=== PATIENT | female | born 1970 | race American Indian/Alaskan Native ===

== ENCOUNTER 2019-10-16 01:02 | Emergency (ER) | payer OTHER ==
[~2019-10-16] VITALS: Ht 170.2 cm; Wt 115.2 kg
[~2019-10-16 01:02] MED LIST: BACTRIM DS TAB1 EACH PO; BENADRYL ALLERG25 MG PO; LEVO-T175 MCG PO; LEVOTHYROXINE200 MCG PO; METFORMIN HCL500 MG PO; NAPROXEN500 MG PO; NEURONTIN100 MG PO; PREDNISONE20 MG PO; SIMVASTATIN20 MG PO; SYNTHROID125 MCG PO; VALTREX1000 MG PO
[2019-10-16] MEDS ORDERED: ULTRAM50 MG PO (02:42)
== END 2019-10-16 02:52 | disposition home or self-care (01) ==
LOC: ED 01:02
DX: S70.02XA Contusion of left hip, initial encounter (principal); S20.211A Contusion of right front wall of thorax, initial encounter; E78.5 Hyperlipidemia, unspecified; F17.200 Nicotine dependence, unspecified, uncomplicated; W19.XXXA Unspecified fall, initial encounter
CPT/HCPCS: 71101; 73502; 99283-25

== ENCOUNTER 2019-11-30 14:22 | Emergency (ER) | payer OTHER ==
[~2019-11-30] VITALS: Ht 170.2 cm; Wt 111.1 kg
--- OUTSIDE RECORDS SUMMARY | ~2019-11-30 | XMS | Encounter Summary ---
Demographics + + + | Address | [address] | | | [place] [address] | + + + | Home Phone | | + + + | Preferred Language | Unknown | + + + | Marital Status | Single | + + + | Sikh Affiliation | 1041 | + + + | Race | or | + + + | Ethnic Group | Not or | + + + Author + + + | Author | [facility] | | | and [place] | + + + | Organization | [facility] | | | and [place] | + + + | Address | Unknown | + + + | Phone | Unavailable | + + + Support + + +---------+ + | Name | Relationship | Address | Phone | + + +---------+ + | Priti Hussein | ECON | Unknown | | + + +---------+ + Care Team Providers + +------+ + | Care Loom Changer Name | Role | Phone | + +------+ + | Quita Hallman | PCP | | + +------+ + Reason for Visit +--------+--------+ + | Reason | Onset | Comments | | | Date | | +--------+--------+ + | Other | 11/20/ | proactive screening | | | 2020 | | +--------+--------+ + Encounter Details +--------+ + + + + | Date | Type | Department | Care Team | Description | +--------+ + + + + | 11/20/ | Telephone | [facility] | Ginny Boland, | Other (proactive | | 2020 | | GASTROENTEROLOGY | [address] | screening) | | | | [address] | [place] [address] | | | | | [place], [place] | [phone] | | | | | [address] | | | | | | [phone] | | | +--------+ + + + + Social History + +-------+ +--------+------+ | Tobacco Use | Types | Packs/Day | Years | Date | | | | | Used | | + +-------+ +--------+------+ | Never Smoker | | | | | + +-------+ +--------+------+ + +---+---+---+ | Smokeless Tobacco: | | | | | Never Used | | | | + +---+---+---+ + + + | Sex Assigned at | Date Recorded | | | | + + + | Not on file | | + + + documented as of this encounter Miscellaneous Notes Telephone Encounter - Andrey Cagle CNA - 11/21/2019 11:56 AM PDTProactive screenin tra for upcoming office visit to help ensure the clinic environment remains a safe place to re ceive care. 1. Patient (or visitor as allowed per policy) reports the following symptoms and/or exposur e on the epidemic risk screen: ? Fever greater than 100 F in the last 24 hours?: no ? New onset (within the last 10 days) cough?: no ? New onset (within the last 10 days) shortness of breath?: no ? New onset (within the last 10 days) loss of taste or smell?: no ? New onset (within the last 10 days) sore throat?: no ? New onset (within the last 10 days) chills?: no ? New onset (within the last 10 days) muscle aches or general malaise?: no ? New onset (within the last 10 days) nausea, vomiting, or diarrhea?: no ? New onset (within the last 10 days) congestion or runny nose?: no ? Close contact with someone who has been diagnosed with COVID-19 in the last 14 days?: no The patient reported no symptoms or exposure and proceeded with proactive screening process . 2. Have you tested positive for COVID-19 in the last 10 days without ever having symptoms ?: No. Okay to see patient in clinic per scheduling guidelines, proceeded to question #3 3. Does the patient have MyChart Access?: No. Patient refused. Please be aware that you will be asked these same questions when you arrive at the clinic. If you have any changes in your symptoms between now and your visit, please call us so we c an get you scheduled for an alternative visit before you arrive at the clinic. Following [facility] guidelines, masking is required when you receive care at a [facility] site. If you are unable to wear a mask for medical reasons, alternative visit opti ons are available. Hand washing is sorto to keeping our clinic a safe place to receive care. While you are in r clinics you will be asked to perform hand washing at different intervals throughout your v isit. While you are in the clinic 6ft distancing is required, please ensure you look for the 6ft floor markers and adhere to distancing. Visitor restrictions remain in place following CDC guidance. Only minimal exceptions will be allowed. If you arrive with a visitor they may be asked to wait in the car during your v isit. We reserve the right to deny entrance to patients or visitors who refuse to comply with the above safety precautions. documented in t his encounter Plan of Treatment Not on filedocumented as of this encounter Visit Diagnoses Not on filedocumented in this encounter"
--- OUTSIDE RECORDS SUMMARY | ~2019-11-30 | XMS | Encounter Summary ---
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 are in the | | | | PDT | | results section. | + +--------+ + + + | CT ABDOMEN PELVIS WO | Routin | 07/23/2012 | | Results for this | | CONTRAST | e | 7:13 AM | | procedure are in the | | | | PDT | | results section. | + +--------+ + + + | XR CHEST 1 VIEW | Routin | 07/23/2012 | | Results for this | | | e | 6:39 AM | | procedure are in the | | | | PDT | | results section. | + +--------+ + + + | XR TIBIA FIBULA | Routin | 07/23/2012 | | Results for this | | RIGHT 2 VW | e | 3:34 AM | | procedure are in the | | | | PDT | | results section. | + +--------+ + + + | XR FOREARM RIGHT 2 | Routin | 07/23/2012 | | Results for this | | VW | e | 3:34 AM | | procedure are in the | | | | PDT | | results section. | + +--------+ + + + | XR PELVIS 1 OR 2 VW | Routin | 07/23/2012 | | Results for this | | | e | 3:34 AM | | procedure are in the | | | | PDT | | results section. | + +--------+ + + + | CT HEAD CERVICAL | Routin | 07/23/2012 | | Results for this | | SPINE WO CONTRAST | e | 3:21 AM | | procedure are in the | | CHEST ABDOMEN PELVIS | | PDT | | results section. | | W CONTRAST | | | | | + +--------+ + + + | XR CHEST 1 VIEW | Routin | 07/23/2012 | | Results for this | | | e | 2:05 AM | | procedure are in the | | | | PDT | | results section. | + +--------+ + + + documented in this encounter Results XR Chest 1 Vw (07/23/2012 8:31 AM PDT) + + | Specimen | + + | | + + + + + | Narrative | Performed At | + + + | HISTORY: Daily assessment for life support lines and tubes. | | | TECHNIQUE: AP chest film 0820 hrs. COMPARISON: AP chest film | | | July 23, 2012 at 0634 hrs. FINDINGS: The well positioned | | | endotracheal tube is unchanged. The enteric tube tip has been slightly | | | advanced, currently margin of the gastric body. A new left basilar | | | chest tube is found, without significant left pneumothorax is seen. | | | Patchy bilateral airspace opacities are again noted, left greater | | | than right suggesting lung contusions. Unchanged left-sided rib | | | fractures are again seen. The cardiac silhouette size is likely stably | | | and mildly enlarged. IMPRESSION: 1. Interval placement of a | | | left-sided chest tube without significant left pneumothorax currently | | | found. 2. Endotracheal tube and nasogastric tube, as above. | | | 3. Unchanged bilateral lung contusions with left-sided rib fractures | | | again seen. Electronically signed by Lv Choudhury MD on | | | 07/23/2012 3:25 PM | | + + + + + | Procedure Note | + + | Farhan, Rad Conversion - 11/25/2018 6:03 PM PDT HISTORY:Daily assessment for life | | support lines and tubes. TECHNIQUE:AP chest film 0820 hrs. COMPARISON:AP chest film | | July 23, 2012 at 0634 hrs. FINDINGS:The well positioned endotracheal tube is unchanged. | | The enteric tube tip has been slightly advanced, currently margin of the gastric body. | | A new left basilar chest tube is found, without significant left pneumothorax is seen. | | Patchy bilateral airspace opacities are again noted, left greater than right suggesting | | lung contusions. Unchanged left-sided rib fractures are again seen. The cardiac | | silhouette size is likely stably and mildly enlarged. IMPRESSION:1. Interval placement | | of a left-sided chest tube without significant left pneumothorax currently found. 2. | | Endotracheal tube and nasogastric tube, as above. 3. Unchanged bilateral lung | | contusions with left-sided rib fractures again seen. | | | |IMPRESSION: | |1. Interval placement of a left-sided chest tube without significant left pneumothorax cur rently found. | | | |2. Endotracheal tube and nasogastric tube, as above. | | | |3. Unchanged bilateral lung contusions with left-sided rib fractures again seen. | | | | | + + XR Chest 1 Vw (07/23/2012 8:24 AM PDT) + + | Specimen | + + | | + + + + + | Narrative | Performed At | + + + | UNIFORM 23 TRAUMA XR CHEST 1 VIEW 07/23/2012 7:55 AM HISTORY: | | | Trauma. Tube placement. TECHNIQUE: One view chest. | | | FINDINGS: Compared with July 23, 2012 0634 hrs. The endotracheal | | | tube tip is 3 cm above the ruba. A left pleural drain has been | | | placed. The nasogastric tube appears to pull back and is now in the | | | lower esophagus. There are persistent contusions throughout the | | | left lung with little significant change. Left clavicle and rib | | | fractures are again noted. The right lung is relatively clear. No | | | definite pneumothorax is seen. IMPRESSION: 1. Placement of a | | | left pleural drain. No other significant change. Electronically | | | signed by Dayne Calixto MD on 07/23/2012 8:12 PM | | + + + + + | Procedure Note | + + | Farhan, Rad Conversion - 11/25/2018 6:03 PM [facility] 23 TRAUMAXR CHEST 1 | | VIEW07/23/2012 7:55 AM HISTORY:Trauma. Tube placement. TECHNIQUE:One view chest. | | FINDINGS:Compared with July 23, 2012 0634 hrs. The endotracheal tube tip is 3 cm above | | the ruba. A left pleural drain has been placed. The nasogastric tube appears to | | pull back and is now in the lower esophagus. There are persistent contusions throughout | | the left lung with little significant change. Left clavicle and rib fractures are | | again noted. The right lung is relatively clear. No definite pneumothorax is seen. | | IMPRESSION:1. Placement of a left pleural drain. No other significant change. | | | | | |FINDINGS: | |Compared with July 23, 2012 0634 hrs. The endotracheal tube tip is 3 cm above the ruba. A left pleural drain has been placed. The nasogastric tube appears to pull back and is no w in the lower esophagus. There are | |persistent contusions throughout | |the left lung with little significant change. Left clavicle and rib fractures are again no rupinder. The right lung is relatively clear. No definite pneumothorax is seen. | | | |IMPRESSION: | |1. Placement of a left pleural drain. No other significant change. | | | | | + + CT Abdomen Pelvis wo Contrast (07/23/2012 7:13 AM PDT) + + | Specimen | + + | | + + + + + | Narrative | Performed At | + + + | EXAM: ABDOMEN AND PELVIS CT EXAM DATE: 07/23/2012 07:14 AM. | | | CLINICAL HISTORY: Trauma, follow up CT from 07/23/2012 at 0238 | | | COMPARISONS: 07/23/2012 at 0238 TECHNIQUE: Routine helical CT | | | imaging was performed through the abdomen and pelvis. IV contrast: | | | None. Enteric contrast: None. Reconstructions: Coronal and sagittal. | | | FINDINGS: Lung Bases: Dense dependent airspace disease both lower | | | lobes, no significant [id number] Left-sided pneumothorax Liver: | | | Diffuse fatty infiltration, no focal mass Gallbladder/Bile Ducts: | | | Prior cholecystectomy, biliary tree otherwise unremarkable Spleen: | | | Normal size. No masses. Pancreas: Normal. No masses or ductal | | | obstruction. Adrenal Glands: Normal. No masses. minimal | | | infiltrative changes are present along the undersurface of the right | | | adrenal gland, may reflect hematoma related to trauma, no change from | | | earlier examination Kidneys: Normal. No masses or hydronephrosis. | | | Peritoneal Cavity/Bowel: Mesentery and omentum unremarkable. | | | Bowel is unremarkable. Pelvic Organs: Sanchez catheter in bladder, | | | bladder completely decompressed Vasculature: There is a collateral | | | varix which extends to the left renal vein, extends out toward the GE | | | junction, and in fact on the portal venous system Bones: Fracture | | | lateral aspect left eighth rib. Minimal subcutaneous emphysema left | | | chest wall Other: None. IMPRESSION: Left eighth rib fracture. | | | Left-sided pneumothorax Minimal infiltrative changes present | | | extending from the entire aspect of the right adrenal gland down | | | around the right renal vein, finding which is stable from earlier in | | | the morning, retroperitoneal hematoma RADIA Electronically | | | signed by Ramone Swanson MD on Jul 23 2012 8:52AM SITE ID: [id number] | | + + + + + | Procedure Note | + + | Farhan, Rad Conversion - 11/25/2018 6:03 PM PDT EXAM:ABDOMEN AND PELVIS CT EXAM DATE: | | 07/23/2012 07:14 AM. CLINICAL HISTORY: Trauma, follow up CT from 07/23/2012 at 0238 | | COMPARISONS: 07/23/2012 at 0238 TECHNIQUE: Routine helical CT imaging was performed | | through the abdomen and pelvis. IV contrast: None. Enteric contrast: None. | | Reconstructions: Coronal and sagittal. FINDINGS:Lung Bases: Dense dependent airspace | | disease both lower lobes, no significant [id number] pneumothorax Liver: Diffuse | | fatty infiltration, no focal mass Gallbladder/Bile Ducts: Prior cholecystectomy, biliary | | tree otherwise unremarkable Spleen: Normal size. No masses. Pancreas: Normal. No masses | | or ductal obstruction. Adrenal Glands: Normal. No masses. minimal infiltrative changes | | are present along the undersurface of the right adrenal gland, may reflect hematoma | | related to trauma, no change from earlier examination Kidneys: Normal. No masses or | | hydronephrosis. Peritoneal Cavity/Bowel: Mesentery and omentum unremarkable. Bowel is | | unremarkable. Pelvic Organs: Sanchez catheter in bladder, bladder completely decompressed | | Vasculature: There is a collateral varix which extends to the left renal vein, extends | | out toward the GE junction, and in fact on the portal venous system Bones: Fracture | | lateral aspect left eighth rib.Minimal subcutaneous emphysema left chest wall Other: | | None. IMPRESSION:Left eighth rib fracture.Left-sided pneumothoraxMinimal infiltrative | | changes present extending from the entire aspect of the right adrenal gland down around | | the right renal vein, finding which is stable from earlier in the morning, | | retroperitoneal hematoma [facility] Electronically signed by Ramone Swanson MD on Jul 23 | | 2012 8:52AM SITE ID: [id number] | |Pancreas: Normal. No masses or ductal obstruction. | | | |Adrenal Glands: Normal. No masses. minimal infiltrative changes are present along the under surface of the right adrenal gland, may reflect hematoma related to trauma, no change from e arlier examination | | | |Kidneys: Normal. No masses or hydronephrosis. | | | |Peritoneal Cavity/Bowel: Mesentery and omentum unremarkable. Bowel is unremarkable. | | | |Pelvic Organs: Sanchez catheter in bladder, bladder completely decompressed | | | |Vasculature: There is a collateral varix which extends to the left renal vein, extends out toward the GE junction, and in fact on the portal venous system | | | |Bones: Fracture lateral aspect left eighth rib. | |Minimal subcutaneous emphysema left chest wall | | | |Other: None. | | | |IMPRESSION: | |Left eighth rib fracture. | |Left-sided pneumothorax | |Minimal infiltrative changes present extending from the entire aspect of the right adrenal gland down around the right renal vein, finding which is stable from earlier in the morning, retroperitoneal hematoma | | | |RADIA | | | | Electronically signed by Ramone Swanson MD on Jul 23 2012 8:52AM SITE ID: [id number] | + + XR Chest 1 Vw (07/23/2012 6:39 AM PDT) + + | Specimen | + + | | + + + + + | Narrative | Performed At | + + + | HISTORY: Chest trauma. TECHNIQUE: AP chest film 0634 hrs. | | | COMPARISON: Chest CT July 23, 2012. Chest film obtained on the same | | | date at 0223 hrs. FINDINGS: Endotracheal tube is unchanged and | | | well positioned. The nasogastric tube has likely been slightly | | | retracted, with the tip present in the region of the esophagogastric | | | junction. There is unchanged evidence of multiple left-sided rib | | | fractures. No pneumothorax is currently found. Patchy bilateral lung | | | opacities are consistent with known left greater than right lung | | | contusions. The film is rotated left anterior oblique, with no | | | significant cardiac silhouette enlargement found. IMPRESSION: 1. | | | Unchanged endotracheal tube. 2. Unchanged lung contusions and | | | multiple left-sided rib fractures. 3. Interval retraction of | | | nasogastric tube, the tip in the region of the esophagogastric | | | junction. Advancement is recommended by approximately 10 cm. | | | | | + + + + + | Procedure Note | + + | Farhan, Rad Conversion - 11/25/2018 6:03 PM PDT HISTORY:Chest trauma. TECHNIQUE:AP | | chest film 0634 hrs. COMPARISON:Chest CT July 23, 2012. Chest film obtained on the same | | date at 0223 hrs. FINDINGS:Endotracheal tube is unchanged and well positioned. The | | nasogastric tube has likely been slightly retracted, with the tip present in the region | | of the esophagogastric junction. There is unchanged evidence of multiple left-sided rib | | fractures. No pneumothorax is currently found. Patchy bilateral lung opacities are | | consistent with known left greater than right lung contusions. The film is rotated left | | anterior oblique, with no significant cardiac silhouette enlargement found. | | IMPRESSION:1. Unchanged endotracheal tube. 2. Unchanged lung contusions and multiple | | left-sided rib fractures. 3. Interval retraction of nasogastric tube, the tip in the | | region of the esophagogastric junction. Advancement is recommended by approximately 10 | | cm. | | | |IMPRESSION: | |1. Unchanged endotracheal tube. | | | |2. Unchanged lung contusions and multiple left-sided rib fractures. | | | |3. Interval retraction of nasogastric tube, the tip in the region of the esophagogastric j unction. Advancement is recommended by approximately 10 cm. | | | | | + + XR Tibia Fibula Right 2 Vw (07/23/2012 3:34 AM PDT) + + | Specimen | + + | | + + + + + | Narrative | Performed At | + + + | HISTORY: Right leg trauma. TECHNIQUE: AP and lateral views of | | | the right tibia and fibula. COMPARISON: None. FINDINGS: | | | There appears to some widening of the medial aspect of ankle mortise, | | | with tiny avulsed fracture fragments noted distal to the medial | | | malleolus. Findings suggest potential deltoid ligament avulsion. No | | | other fractures are seen. Some soft tissue swelling is seen about | | | the ankle. IMPRESSION: 1. Some widening of the medial aspect of | | | ankle mortise with adjacent avulsed bony fragments. Findings suggest | | | potential deltoid ligament avulsion. | | + + + + + | Procedure Note | + + | Vineet Real Conversion - 11/25/2018 6:03 PM PDT HISTORY:Right leg trauma. TECHNIQUE:AP | | and lateral views of the right tibia and fibula. COMPARISON:None. FINDINGS:There appears | | to some widening of the medial aspect of ankle mortise, with tiny avulsed fracture | | fragments noted distal to the medial malleolus. Findings suggest potential deltoid | | ligament avulsion. No other fractures are seen. Some soft tissue swelling is seen about | | the ankle. IMPRESSION:1. Some widening of the medial aspect of ankle mortise with | | adjacent avulsed bony fragments. Findings suggest potential deltoid ligament avulsion. | | | | | |FINDINGS: | |There appears to some widening of the medial aspect of ankle mortise, with tiny avulsed fra cture fragments noted distal to the medial malleolus. Findings suggest potential deltoid lig ament avulsion. No other fractures | |are seen. Some soft tissue swelling | |is seen about the ankle. | | | |IMPRESSION: | |1. Some widening of the medial aspect of ankle mortise with adjacent avulsed bony fragment s. Findings suggest potential deltoid ligament avulsion. | | | | | + + XR Forearm Right 2 Vw (07/23/2012 3:34 AM PDT) + + | Specimen | + + | | + + + + + | Narrative | Performed At | + + + | HISTORY: Right forearm trauma. TECHNIQUE: AP and lateral views | | | of the right forearm. COMPARISON: None. FINDINGS: A | | | comminuted midshaft left ulnar fracture is noted, with one half | | | shaft's width dorsal displacement of the distal fracture fragment. One | | | full shaft's width ulnar displacement of the distal fracture fragment | | | is noted. 1 cm overriding of fracture fragments is noted, with two | | | associated butterfly fragments noted somewhat ventrally. Moderate the | | | apex radial angulation is seen. A fracture involves the junction | | | of the proximal and mid third of the radial diaphysis, with 1 cm | | | overriding of fracture fragments, and one full shaft's width ventral | | | and ulnar displacement of the distal fracture fragment. Soft | | | tissue swelling overlies the fracture sites. IMPRESSION: 1. | | | Both bone forearm fractures, as above. | | + + + + + | Procedure Note | + + | Vineet Real Conversion - 11/25/2018 6:03 PM PDT HISTORY:Right forearm trauma. | | TECHNIQUE:AP and lateral views of the right forearm. COMPARISON:None. FINDINGS:A | | comminuted midshaft left ulnar fracture is noted, with one half shaft's width dorsal | | displacement of the distal fracture fragment. One full shaft's width ulnar displacement | | of the distal fracture fragment is noted. 1 cm overriding of fracture fragments is | | noted, with two associated butterfly fragments noted somewhat ventrally. Moderate the | | apex radial angulation is seen. A fracture involves the junction of the proximal and mid | | third of the radial diaphysis, with 1 cm overriding of fracture fragments, and one full | | shaft's width ventral and ulnar displacement of the distal fracture fragment. Soft | | tissue swelling overlies the fracture sites. IMPRESSION:1. Both bone forearm fractures, | | as above. | |1 cm overriding of fracture fragments | | is noted, with two associated butterfly fragments noted somewhat ventrally. Moderate the a pex radial angulation is seen. | | | |A fracture involves the junction of the proximal and mid third of the radial diaphysis, wit h 1 cm overriding of fracture fragments, and one full shaft's width ventral and ulnar displa cement of the distal fracture fragment. | | | |Soft tissue swelling overlies the fracture sites. | | | |IMPRESSION: | |1. Both bone forearm fractures, as above. | | | | | + + XR Pelvis 1 or 2 Vw (07/23/2012 3:34 AM PDT) + + | Specimen | + + | | + + + + + | Narrative | Performed At | + + + | HISTORY: Trauma. TECHNIQUE: AP pelvic film. COMPARISON: | | | Abdomen and pelvis CT July 23, 2012. FINDINGS: No fracture or | | | dislocation is seen. A Sanchez catheter overlies the urinary bladder. | | | IMPRESSION: 1. No fracture or dislocation. Electronically | | | signed by Lv Choudhury MD on 07/23/2012 7:34 AM | | + + + + + | Procedure Note | + + | Farhan, Vineet Conversion - 11/25/2018 6:03 PM PDT HISTORY: | | Trauma. | | | | TECHNIQUE: | | AP pelvic film. | | | | COMPARISON: | | Abdomen and pelvis CT July 23, 2012. | | | | FINDINGS: | | No fracture or dislocation is seen. A Sanchez catheter overlies the urinary bladder. | | | | IMPRESSION: | | 1. No fracture or dislocation. | | | | | + + CT Head Cerv Spin wo [facility] Alyse Jernigan (07/23/2012 3:21 AM PDT) + + | Specimen | + + | | + + + + + | Narrative | Performed At | + + + | EXAM: CT BODY TRAUMA 07/23/2012. HISTORY: Trauma. | | | COMPARISON: None available. TECHNIQUE: Imaging was performed | | | through the head, cervical spine, chest, abdomen, pelvis, and | | | thoracolumbar spine. There are reformats. 100 cc Isovue-300 was used | | | as contrast material for portions of the examination. FINDINGS: | | | Head CT: Suboptimal patient head positioning. Given this, there is | | | no overt evidence of intraparenchymal hemorrhage, extraaxial fluid | | | collection, or mass lesion. No acute loss of arias-white matter | | | differentiation or mass effect. There is a large left posterior | | | scalp laceration. There is no evidence of depressed skull fracture. | | | There are several small radiopacities within the scalp soft tissues | | | which could represent avulsion fracture or radiopaque foreign body. | | | There is sinusitis. Cervical Spine CT: There is motion artifact. | | | Given this, there is no overt evidence of acute cervical spine | | | fracture or dislocation. There are hypoplastic cervical ribs at the C7 | | | level. Chest CT: Aortic contour is within normal limits. There is | | | no evidence of mediastinal hematoma. There are areas of patchy | | | consolidation within the lungs. Findings likely represent combination | | | of pulmonary contusion and atelectasis. No evidence of pleural | | | effusion. There is a small left pneumothorax. There is hepatic | | | steatosis. No evidence of liver laceration. No evidence of acute | | | traumatic injury to the spleen or pancreas. There is stranding at the | | | inferior margin of the left adrenal gland and along the right lateral | | | margin of the upper IVC (axial image 67). This is suspicious for | | | hematoma. The stomach is distended. The nasogastric tube is proximally | | | positioned. Advancement of 5 to 10 cm recommended as indicated. There | | | is no evidence of intraperitoneal free air. The colon demonstrates no | | | significant abnormalities. The cecum is located near midline. There | | | are no acute pelvic organ abnormalities. No intraperitoneal free air. | | | Bones: There is fracture through the medial aspect of the left | | | first rib. There are mildly displaced fractures involving the left | | | fifth through eighth ribs. There is no evidence of thoracolumbar spine | | | fracture or dislocation. No pelvic fracture. There is comminuted | | | left clavicle fracture. Soft Tissues: There is posterior left | | | flank swelling. IMPRESSION: 1. No acute intracranial CT | | | abnormality. 2. No evidence of depressed skull fracture. 3. There is | | | marked posterior left scalp soft tissue swelling. There are several | | | small radiopacities within the left lateral soft tissues which could | | | represent small bony avulsion fracture or radiopaque foreign bodies. | | | 4. There is no evidence of cervical spine fracture or dislocation. 5. | | | Areas of consolidation within the left upper and lateral lung are | | | suspicious for pulmonary contusion. There is also bibasilar | | | atelectasis. There is a very small left pneumothorax. No evidence of | | | mediastinal shift. 6. There are minimally displaced fractures through | | | the left first and fifth through eighth ribs. 7. There is fat | | | stranding and hyperdensity at the right lateral margin of the IVC, | | | below the left adrenal gland. This is suspicious for paracaval small | | | mesenteric vessel injury. Injury to the IVC itself is less likely | | | given small volume of hematoma. 8. No other evidence of acute | | | traumatic injury to the abdomen or pelvis. 9. No evidence of fracture | | | to the thoracolumbar spine. 10. There is comminuted left clavicle | | | fracture. 11. Proximally positioned nasogastric tube. CRITICAL | | | RESULT: Findings of the study called to Dr. Suggs at 4:30 a.m. | | | Electronically signed by Adrianne Butt MD on Jul 23 2012 8:05AM | | | SITE ID: [id number] | | + + + + + | Procedure Note | + + | Farhan, Rad Conversion - 11/25/2018 6:03 PM PDT EXAM:CT BODY TRAUMA 07/23/2012. | | HISTORY: Trauma. COMPARISON: None available. TECHNIQUE: Imaging was performed through | | the head, cervical spine, chest, abdomen, pelvis, and thoracolumbar spine. There are | | reformats. 100 cc Isovue-300 was used as contrast material for portions of the | | examination. FINDINGS: Head CT: Suboptimal patient head positioning. Given this, there | | is no overt evidence of intraparenchymal hemorrhage, extraaxial fluid collection, or | | mass lesion. No acute loss of arias-white matter differentiation or mass effect. There is | | a large left posterior scalp laceration. There is no evidence of depressed skull | | fracture. There are several small radiopacities within the scalp soft tissues which | | could represent avulsion fracture or radiopaque foreign body. There is sinusitis. | | Cervical Spine CT: There is motion artifact. Given this, there is no overt evidence of | | acute cervical spine fracture or dislocation. There are hypoplastic cervical ribs at the | | C7 level. Chest CT: Aortic contour is within normal limits. There is no evidence of | | mediastinal hematoma. There are areas of patchy consolidation within the lungs. Findings | | likely represent combination of pulmonary contusion and atelectasis. No evidence of | | pleural effusion. There is a small left pneumothorax. There is hepatic steatosis. No | | evidence of liver laceration. No evidence of acute traumatic injury to the spleen or | | pancreas. There is

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
--- OUTSIDE RECORDS SUMMARY | ~2019-11-30 | XMS | Clinical Summary ---
Demographics + + + | Address | [address] | | | [place] [address] | + + + | Home Phone | | + + + | Preferred Language | Unknown | + + + | Marital Status | Single | + + + | Restoration Affiliation | [id number] | + + + | Race | or | + + + | Ethnic Group | Not or | + + + Author + + + | Author | [facility] | | | and [place] | + + + | Organization | [facility] | | | and [...] Team Providers + +------+ + | Care Chief Medical Officer Name | Role | Phone | + +------+ + | Quita Hallman | PCP | | + +------+ + Allergies No Known Allergies Medications + + + +---------+------+------+-------+ | Medication | Sig | Dispensed | Refills | Star | End | Statu | | | | | | t | Date | s | | | | | | Date | | | + + + +---------+------+------+-------+ | levothyroxine | Take 200 mcg by | | 0 | 09/1 | | Activ | | (SYNTHROID, | mouth Daily. | | | 4/20 | | e | | LEVOTHROID) 200 mcg | | | | 12 | | | | tablet | | | | | | | + + + +---------+------+------+-------+ | naproxen | one tablet two times | | 0 | 09/1 | | Activ | | (NAPROSYN) 500 mg | daily with meals | | | 4/20 | | e | | tablet | | | | 12 | | | + + + +---------+------+------+-------+ | Cyanocobalamin | Take by mouth. | | 0 | | | Activ | | (B-12 PO) | Unknown dose | | | | | e | + + + +---------+------+------+-------+ | Multiple | Take by mouth. | | 0 | | | Activ | | Vitamins-Minerals | Unknown dose | | | | | e | | (MULTIVITAMIN ADULT | | | | | | | | PO) | | | | | | | + + + +---------+------+------+-------+ | moisturizing | Place into the left | 1 Tube | 11 | 04/0 | | Activ | | (REFRESH LACRI-LUBE) | eye Daily. At | | | 04/24 | | e | | ophthalmic | bedtime. Put 04/06 | | | 20 | | | | ointmentIndications: | inch inside lower | | | | | | | Resendiz's palsy | lid. | | | | | | + + + +---------+------+------+-------+ +---+ + | | Additional | | | InformationPatient | | | not taking. Reported | | | on 11/22/2019 2:49 | | | PM | +---+ + + + + +----+------+---+-------+ | | Place 1 drop into | 1 each | 11 | 04/0 | | Activ | | carboxymethylcellulo | the left eye every 4 | | | /20 | | e | | se, PF, (REFRESH | hours as needed for | | | 20 | | | | CELLUVISC, | Dry Eyes. | | | | | | | THERATEARS) 1% | | | | | | | | ophthalmic | | | | | | | | gelIndications: | | | | | | | | Resendiz's palsy | | | | | | | + + + +----+------+---+-------+ +---+ + | | Additional | | | InformationPatient | | | not taking. Reported | | | on 11/22/2019 2:49 | | | PM | +---+ + + + +---+---+---+---+-------+ | Biotin w/ Vitamins | Take by mouth. | | 0 | | | Activ | | C & E | | | | | | e | | (HAIR/SKIN/NAILS PO) | | | | | | | + + +---+---+---+---+-------+ Active Problems + + + | Problem | Noted Date | + + + | SHOULDER PAIN, RIGHT | | + + + | CARPAL TUNNEL SYNDROME, RIGHT | | + + + | PARESTHESIA | | + + + Encounters +--------+ + + + + | Date | Type | Specialty | Care Team | Description | +--------+ + + + + | 11/26/ | Telephone | Gastroenterology | Ginny Boland, | Results | | 2020 | | | MD | | +--------+ + + + + | 11/21/ | Office | Gastroenterology | Ginny Boland, | Alcohol abuse | | 2019 | Visit | | MD | (Primary Dx); | | | | | | Elevated liver | | | | | | enzymes; Class 2 | | | | | | severe obesity due | | | | | | to excess calories | | | | | | with serious | | | | | | comorbidity in | | | | | | adult, unspecified | | | | | | BMI (HCC) | +--------+ + + + + | 11/20/ | Telephone | Gastroenterology | Ginny Boland, | Other (proactive | 2019 | | | MD | screening) | +--------+ + + + + | 11/09/ | Telephone | Gastroenterology | Kali Warner | Referral (schedule | 2019 | | | MD Genet | appointment) | +--------+ + + + + from Last 3 Months Immunizations + + + + | Name | Administration Dates | Next Due | + + + + | TDAP, (ADOL/ADULT) | 07/23/2012, 12/03/2006 | | + + + + Social History + [...] on file | | + + + Last Filed Vital Signs + + + [...] + + + | Respiratory Rate | 16 | 02/23/2019 2:14 PM | | | | | PST | | + + + + + | Oxygen Saturation | 99% | 07/05/2019 8:39 AM | | | | | PDT | [...] | | + + + + + Plan of Treatment + + + + + | Health Maintenance | Due Date | Last | Comments | | | | Done | | + + + + + | Hepatitis C | | | | | Screening | 2 | | | + + + + + | Med Mgmt: BUN | | | | | | 2 | | | + + + + + | Med Mgmt: Cr | | | | | | 2 | | | + + + + + | Med Mgmt: TSH | | | | | | 2 | | | + + + + + | Medication | | | | | Management | 2 | | | + + + + + | Cervical Cancer | | | | | Screening (Pap) | 2 | | | + + + + + | Breast Cancer | | | | | Screening | 7 | | | + + + + + | Vaccine: Influenza | | 12/28/19 | | | (#1) | 0 | 19, | | | | | 01/27/20 | | | | | 17, | | | | | 12/18/19 | | | | | 16, | | | | | Addition | | | | | al | | | | | history | | | | | exists | | + + + + + | Vaccine: | | 11/23/19 | | | Dtap/Tdap/Td (4 - | 9 | 19, | | | Td) | | 07/24/19 | | | | | 13, | | | | | 12/04/19 | | | | | 07 | | + + + + + Results Not on filefrom Last 3 Months Insurance + +--------+ +--------+ +---------+--------+ | Payer | Benefi | Subscriber | Effect | Phone | Address | Type | | | t Plan | ID | irma | | | | | | / | | Dates | | | | | | Group | | | | | | + +--------+ +--------+ +---------+--------+ | [employer] [facility] | [employer] | [id number] | 02/22/ | | | Indemn | | SERVICE | YELLOW | | 2019-P | | | ity | | | [place] | | resent | | | | + +--------+ +--------+ +---------+--------+ | [facility] | [facility] | [id number] | 02/22/ | | | Indemn | | SERVICE | YELLOW | | 2019-P | | | ity | | | [place] | | resent | | | | + +--------+ +--------+ +---------+--------+ | [employer] [place] | MEDICA | [id number] | 01/19/ | [phone] | | Medica | | | [place] | | 2019-P | 2 | | id | | | PLUS | | resent | | | | + +--------+ +--------+ +---------+--------+ | [employer] [place] | MEDICA | [id number] | 01/19/ | [phone] | | [place] | | | [place] | | 2019-P | 2 | | id | | | PLUS | | resent | | | | + +--------+ +--------+ +---------+--------+ + +--------+ +--------+ + + | Guarantor Name | Accoun | Relation to | Date | Phone | Billing Address | | | t Type | Patient | of | | | | | | | | | | + +--------+ +--------+ + + | Gemma Rose | Person | Self [birth year] | | [address] | | | al/Fam | | 1970 | [id number] | [place], [place] | | | [place]raine | | | 5 (Home) | [address] | + +--------+ +--------+ + + | Gemma Rose | Person | Self [birth year] | | [address] | | | al/Fam | | 1970 | [phone] | [place], [place] | | | [place] | | | [address] (Home) | [phone] | + +--------+ +--------+ + + Advance Directives + + + + + | Type | Date Recorded | Patient | Explanation | | | | Machine Fixer | | + + + + + | Power of | | | | | Drop Hammer Operator Helper | | | | + + + + + | Advance | | | | | Directive | | | | + + + + +
--- OUTSIDE RECORDS SUMMARY | ~2019-11-30 | XMS | Encounter Summary ---
Demographics + + + | Address | [address] | | | [place] [address] | + + + | Home Phone | | + + + | Preferred Language | Unknown | + + + | Marital Status | Single | + + + | Confucianist Affiliation | 1041 | + + + | Race | or | + + + | Ethnic Group | Not or | + + + Author + + + | Author | [facility] | | | and [place] | + + + | Organization | [facility] | | | [...] Team Providers + +------+ + | Care Bean Roaster Name | Role | Phone | + +------+ + PCP | Unavailable | + +------+ + Encounter Details +--------+ + + + + | Date | Type | Department | Care Team | Description | +--------+ + + + + | 12/16/ | Abstract | [facility] | DATA MIGRATION BILL | | | 2011 | | Conversion Location | SR | | | | | [address] | | | | | | [place], [place] | | | | | | [address] | | | | | | [phone] | | | +--------+ + + + [...] + + + | Blood Pressure | 126/87 | 06/24/2011 12:00 AM | | | | | PDT | | + + + + + | Pulse | - | - | | + [...] + + + + | Weight | 118.3 kg (260 lb | 06/24/2011 12:00 AM | | | | 12.8 oz) | PDT | | + + + + + | Height | 168.9 cm (5' 6.5") | 06/24/2011 12:00 AM | | | | | PDT | | + + + + + | Body Mass Index | 41.46 | 06/24/2011 12:00 AM | | | | | PDT | | + + + + + documented in this encounter Plan of Treatment Not on filedocumented as of this encounter Visit Diagnoses Not on filedocumented in this encounter
--- OUTSIDE RECORDS SUMMARY | ~2019-11-30 | XMS | Encounter Summary ---
Demographics + + + | Address | [address] | | | [place] [address] | + + + | Home Phone | | + + + | Preferred Language | Unknown | + + + | Marital Status | Single | + + + | Rastafari Affiliation | 1041 | + + + | Race | or | + + + | Ethnic Group | Not or | + + + Author + + + | Author | [facility] | | | and [place] | + + + | Organization | [facility] | | | [...] Team Providers + +------+ + | Care Telephone Technician Name | Role | Phone | + +------+ + | Quita Hallman | PCP | | + +------+ + Reason for Visit + +--------+ + | Reason | Onset | Comments | | | Date | | + +--------+ + | Referral | 01/18/ | | | | 2019 | | + +--------+ + Encounter Details +--------+ + + + + | Date | Type | Department | Care Team | Description | +--------+ + + + + | 01/18/ | Telephone | [facility] | Andrea Pacheco, | Referral | | 2019 | | NEUROLOGY [address] | | | | | [address] | [address] [facility] [address] | | | | | [place], [place] | [place] [address] | | | | | [address] | [phone] | | | | | [phone] | | | +--------+ + + + [...] this encounter Miscellaneous Notes Telephone Encounter - Arnaldo Spaulding - 02/07/2019 10:06 AM PSTGemma, is returning call for Referral and would like a call back. Additional Call Details: Returning call. Call home number listed on the chart. elephone Encounter - Margy Olivera - 02/07/2019 9:59 AM PSTCalled to schedule, left VM with contact info. Elec tronically signed by Margy Olivera at 02/07/2019 10:00 AM PSTTelephone Encounter - Valarie Prabhakar - 02/06/2019 1:50 PM PSTGemma, is calling again for Referral and would like a call back. Additional Call Details: Calling again to schedule from referral. Please call her back at home number listed elephone Almaz Jensen - 02/06/2019 8:56 AM PSTTia- Sandra Wilson, is calling again for Ref erral and would like a call back. Additional Call Details: Wanting to know the status of the referral. Please call back at [phone] and speak with Abby (Patient care attendant). elephone Encounter - Margy Tuttle - 01/18/2019 2:20 PM PDTUnable to return call, phone lines not working. Refer ral was received and will be entered for provider review. elephone Encounter - Valarie Massey - 01/18/2019 1 :49 PM PDTAlicia - Sandra wilson, is calling regarding Referral and would like a call back. Additional Call Details: Calling to confirm if referral was received. Please call her back at [phone] can leave detailed message with the answer If this is a symptom based call, was patient offered triage? Not Applicable If this is a symptom based call and you were unable to immediately transfer the call to a [place] was caller made aware that if at any time she feels it is an emergency they sh ould call 911 or go to the nearest emergency room? not applicable documented in this encounter Plan of Treatment Not on filedocumented as of this encounter Visit Diagnoses Not on filedocumented in this encounter"
--- OUTSIDE RECORDS SUMMARY | ~2019-11-30 | XMS | Encounter Summary ---
Demographics + + + | Address | [address] | | | [place] [address] | + + + | Home Phone | | + + + | Preferred Language | Unknown | + + + | Marital Status | Single | + + + | Buddhism Affiliation | 1041 | + + + | Race | or | + + + | Ethnic Group | Not or | + + + Author + + + | Author | [facility] | | | and [place] | + + + | Organization | [facility] | | | and [...] Team Providers + +------+ + | Care Tailor Fitter Name | Role | Phone | + +------+ + | Quita Hallman | PCP | | + +------+ + Reason for Visit + +--------+ + | Reason | Onset | Comments | | | Date | | + +--------+ + | Referral | 11/09/ | schedule appointment | | | 2020 | | + +--------+ + Encounter Details +--------+ + + + + | Date | Type | Department | Care Team | Description | +--------+ + + + + | 11/09/ | Telephone | [facility] | Kali Warner | Referral (schedule | | 2019 | | GASTROENTEROLOGY | MD Genet [address] [facility] | appointment) | | | | [address] | [place] [address] | | | | | [place], [place] | [phone] | | | | | [address] | | | | | | [phone] | | | +--------+ + + + [...] this encounter Miscellaneous Notes Telephone Encounter - Belgica Morton - 11/14/2019 2:34 PM PDTSee referral notes/jenn almendarez 11/14/2019 Belgica Morton Tie Buyer elephone Encounter - Lian Alaniz - 11/13/2019 2:03 PM PDTJulia, is returning call for Referral (schedule appoint ment) and would like a call back. Additional Call Details: Returning call to schedule from new referral. Please call Gemma patricio at [phone]. eleph one Encounter - David Mariam - 11/10/2019 10:56 AM PDTJulia, is calling regarding Nubia robins (schedule appointment) and would like a call back. Additional Call Details: Schedule appointment. Home number If this is a symptom based call, was patient offered triage? Not Applicable If this is a symptom based call and you were unable to immediately transfer the call to a ann-marie [place] door person was caller made aware that if at any time she feels it is an emergency they sh ould call 911 or go to the nearest emergency room? not applicable documented in this encounter Plan of Treatment Not on filedocumented as of this encounter Visit Diagnoses Not on filedocumented in this encounter"
--- OUTSIDE RECORDS SUMMARY | ~2019-11-30 | XMS | Encounter Summary ---
Demographics + + + | Address | [address] | | | [place] [address] | + + + | Home Phone | | + + + | Preferred Language | Unknown | + + + | Marital Status | Single | + + + | Uatsdin Affiliation | 1041 | + + + | Race | or | + + + | Ethnic Group | Not or | + + + Author + + + | Author | [facility] | | | and [place] | + + + | Organization | [facility] | | | [...] Team Providers + +------+ + | Care Project Coordinator Rn Name | Role | Phone | + +------+ + | Quita Hallman | PCP | | + +------+ + Reason for Visit +--------+--------+ + | Reason | Onset | Comments | | | Date | | +--------+--------+ + | Other | 04/19/ | Rescheduling red dotted New patients | | | 2020 | | +--------+--------+ + Encounter Details +--------+ + + + + | Date | Type | Department | Care Team | Description | +--------+ + + + + | 04/19/ | Telephone | [facility] | Toscano, | Other (Rescheduling | | 2020 | | NEUROLOGY [address] | [address] | red dotted New | | | | [address] | | patients) | | | | [place], [place] | | | | | | [address] | | | | | | [phone] | | | +--------+ + + + [...] this encounter Miscellaneous Notes Telephone Encounter - Halina De Oliveira Highway Maintenance Crew Worker - 04/25/2019 12:04 PM PSTC alled patient back, offered sooner appointment on 05/02 to which patient declined due to hendricks sportation. scheduled to 07/05/2019 at 8:45AM. Patient agreed with date and time Electronicall y signed by Halina Mcconnell Highway Maintenance Crew Worker at 04/25/2019 12:05 PM PSTTelephone En counter - Julienne Davey - 04/24/2019 11:01 AM PSTForwarded to NM staff, notes indicate wa iting for call back from patient elephone Encounter - Almaz Rivera - 04/24/2019 9:48 AM PSTJuzofiaa, is returning c all for Other (Rescheduling red dotted New patients) and would like a call back. Additional Call Details: Patient is returning call to see if there are any later times jah ilable for 07/05/19. Please call her back at [phone]. elephone Encounter - Karyna Traore CMA - 04/21/2019 9:24 AM PSTCalled patient regarding rescheduling appt. L eft a brief message to call office back. Did not know if previous appt offered was good to r eschedule appt for. Will await for her call to further assist patient. elephone Encounter - RonksKraig - 04/20/2019 12:34 PM PSTJulitere, is returning call for Other (Rescheduling red dotted New [place] ents) and would like a call back. Additional Call Details: Requesting call back at home phone listed, being [phone] elephone Encounter - Karyna Aguilar CMA - 04/20/2019 11:12 AM PSTCalled patient back regarding inbox message. D id leave a message to call office back for rescheduling. She was unable to come to 0 appt offered due to weather. I did offer another time slot for 07/05/2019 at 8:45am. Await ing call back. el ephone Encounter - Kraig Diez - 04/19/2019 2:26 PM PSTJulitere, is returning call for Oth er (Rescheduling red dotted New patients) and would like a call back. Additional Call Details: States she cannot take the 04/20/19 slot due to weather. Please c all her back at [phone]. elephone Encounter - Karyna Aguilar CMA - 04/19/2019 11:48 AM PSTCalled patient to reschedule appt from 020 at 08:05am. Was directed to move patient to a different day. Was wondering if patient edgar zhu possibly come in tomorrow 04/20/2019 at 08:45am? If she is unable to I will reschedule h er for another day. Unfortunately we are booking out until June or July. Will await phone call to make further changes. documented in this encounter Plan of Treatment Not on filedocumented as of this encounter Visit Diagnoses Not on filedocumented in this encounter"
--- OUTSIDE RECORDS SUMMARY | ~2019-11-30 | XMS | Encounter Summary ---
Demographics + + + | Address | [address] | | | [place] [address] | + + + | Home Phone | | + + + | Preferred Language | Unknown | + + + | Marital Status | Single | + + + | Worship Affiliation | 1041 | + + + [...] Team Providers + +------+ + | Care Assistant Professor Of Life Sciences Name | Role | Phone | + +------+ + | Quita Hallman | PCP | | + +------+ + Reason for Visit + + + | Reason | Comments | + + + | New Patient | bells palsy and swallowing | + + + Evaluate & Treat (Routine) +--------+--------+ + + + + | Status | Reason | Specialty | Diagnoses / | Referred By | Referred To | | | | | Procedures | Contact | Contact | +--------+--------+ + + + + | Closed | | Otolaryngolog | Diagnoses | [facility], | Koby Crandall | | | | y | moiz | TOMER Devlin | MD [address] | | | | | palsy, | [address] [address] | | | | | dysphagia/se | [address] | [address] | | | | | lf/[employer] | [place], | [place] | | | | | Procedures | [place] [address] | [address] Phone: | | | | | NEW | Phone: | [phone] | | | | | PATIENT | [phone] | Fax: | | | | | | Fax: | [phone] | | | | | | [phone] | | +--------+--------+ + + + + Encounter Details +--------+---------+ + + + | Date | Type | Department | Care Team | Description | +--------+---------+ + + + | 02/23/ | Office | [facility] | Koby Crandall MD | Resendiz's palsy | | 2019 | Visit | OTOLARYNGOLOGY [address] | [address] [place] | (Primary Dx) | | | | [address] [facility] [address] | [address] [place] | | | | | [place] | [address] | | | | | [address] | | | | | | [phone] | | | +--------+---------+ + + + Social History [...] + + + | Blood Pressure | - | - | | + + + + + | Pulse | 82 | 02/23/2019 2:14 PM | | | | | PST | | + + + + + | Temperature | - | - | | + + + + + | Respiratory Rate | 16 | 02/23/2019 2:14 PM | | | | | PST | | + + + + + | Oxygen Saturation | 97% | 02/23/2019 2:14 PM | | | | | PST | | + + + + + | Inhaled Oxygen | - | - | | | Concentration | | | | + + + + + | Weight | 118.4 kg (261 lb) | 02/23/2019 2:14 PM | | | | | PST | | + + + + + | Height | 168.9 cm (5' 6.5") | 02/23/2019 2:14 PM | | | | | PST | | + + + + + | Body Mass Index | 41.5 | 02/23/2019 2:14 PM | | | | | PST | | + + + + + documented in this encounter Progress Notes Koby Crandall MD - 02/23/2019 2:30 PM PSTPatient in October of this year had a sudden onset of a paralyzed left face. At the time she was seen and had an MRI scan of her head and no a bnormalities were noted. She was diagnosed with Resendiz's palsy and then treated to protect he r eye. She noted she had decreased taste on the left side of her tongue and had almost tota l paralysis of the left side of her face. She would protect her eye at night by closing the eye mechanically. She did not develop any ulcers of the cornea. She has noticed over the last 4 months that the movement on the left side of her face has continued to improve. She gets electrical stimulus to the left face as she tries to recover from the Resendiz's palsy. Casi castro has had problems with the ability to drink fluids because they tend to come out on the lef t-hand side. This also has improved some and particularly as long as she is tries to eat an d drink mainly on the right-hand side. Examination: Patient is an alert 48-year-old female patient in no acute distress. Skin of the face nose and ears all appears to be smooth and healthy. Ear canals are open and clean and drums were clear. Nasal passages no obstruction mass or lesion noted. In the oral cavi ty and the oropharynx no mass or lesions are noted. No mass seen in the posterior pharyngea l wall and tongue and soft palate moves symmetrically. The patient's left facial movement i s decreased considerably compared to the right. She does have some movement that is reoccur ring around the opening of her mouth on the left-hand side. She can elevate her eyebrows bu t weakly on the left-hand side. She is not able to close her eye but she does have fascicul ations present in the orbital muscles and that she closes the eye mechanically. She would a ppear to be about 50% recovered on the muscle function of the left side of her face. Impression: Left facial Resendiz's palsy. Plan: Patient encouraged that this should continue to slowly improve and most of the improv ement will occur over the first year but there can be improvement over [address] ct that she has back a fair amount of function means that most likely she will regain most o f the function. She needs to continue to protect her eye and be patient for the healing.Alma ctronically signed by Koby Crandall MD at 02/23/2019 2:40 PM PSTdocumented in this encounte r Plan of Treatment Not on filedocumented as of this encounter Visit Diagnoses + + | Diagnosis | + + | Resendiz's palsy - Primary | + + documented in this encounter
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
--- OUTSIDE RECORDS SUMMARY | ~2019-11-30 | XMS | Encounter Summary ---
Demographics + + + | Address | [address] | | | [place] [address] | + + + | Home Phone | | + + + | Preferred Language | Unknown | + + + | Marital Status | Single | + + + | Congregation Affiliation | 1041 | + + + | Race | or | + + + | Ethnic Group | Not or | + + + Author + + + | Author | [facility] | | | and [place] | + + + | Organization | [facility] | | [...] Team Providers + +------+ + | Care Manager Wastewater Name | Role | Phone | + +------+ + | Quita Hallman | PCP | | + +------+ + Reason for Visit +---------+--------+ + | Reason | Onset | Comments | | | Date | | +---------+--------+ + | Results | 11/26/ | | | | 2019 | | +---------+--------+ + Encounter Details +--------+ + + + + | Date | Type | Department | Care Team | Description | +--------+ + + + + | 11/26/ | Telephone | [facility] | Ginny Boland, | Results | | 2020 | | GASTROENTEROLOGY | [address] | | | | | [address] | [place] [address] | | | | | [place], [place] | [phone] | | | | | [address] | | | | | | [phone] | | | +--------+ + + + [...] this encounter Miscellaneous Notes Telephone Encounter - Christy Aceves, Veterinary Surgery Technologist - 11/27/2019 11:11 AM PDTCalled patient and relayed the results to her. She said okay thank you. elephone Encounter - Bebo Aceves Veterinary Surgery Technologist - 11/27/2019 11:09 AM PDT----- Message from Ginny Boland MD se nt at 11/22/2019 5:26 PM PDT ----- Please notify patient that I reviewed all the labs and ultrasound done . It showed slightl y high liver enzymes which seems to be related to use of alcohol in the past. Would recomme nd continuing to stay away from alcohol and repeating liver enzymes in 3 months.Electronical ly signed by Christy Aceves, Veterinary Surgery Technologist at 11/27/2019 11:09 AM PDTdocumented in thi s encounter Plan of Treatment Not on filedocumented as of this encounter Visit Diagnoses Not on filedocumented in this encounter"
[~2019-11-30 14:22] MED LIST changes: +ULTRAM50 MG PO
[2019-11-30] MEDS ORDERED: OMEPRAZOLE20 MG PO (18:24)
--- NOTE | 2019-11-30 22:42 | EKG ---
[facility] [address] [facility] [place], [place] [address] Signed Normal sinus rhythm Possible Inferior infarct , age undetermined Abnormal ECG When compared with ECG of 22-OCT-2018 20:30, No significant change was found Confirmed by DG JAY MD ([id number]) on 11/30/2019 10:42:40 PM Electronically Signed By: DG JAY MD 11/30/19 2242 PATIENT NAME: ELICEO HAZEL Electrocardiogram DATE OF : 72 PHYSICIAN: DG JAY MD REPORT #: [id number] REPORT IS CONFIDENTIAL AND NOT TO BE RELEASED WITHOUT AUTHORIZATION
== END 2019-11-30 18:48 | disposition home or self-care (01) ==
LOC: ED 14:22
DX: K21.9 Gastro-esophageal reflux disease without esophagitis (principal); E78.5 Hyperlipidemia, unspecified; Z87.891 Personal history of nicotine dependence; Z79.899 Other long term (current) drug therapy
CPT/HCPCS: 71045; 80053; 83735; 84484; 85025; 93005; 93010; 99285-25

== ENCOUNTER 2022-05-20 06:40 | Day surgery (SDC) | payer OTHER ==
[~2022-05-20] VITALS: Ht 170.2 cm; Wt 106.8 kg
[~2022-05-20 06:40] MED LIST changes: +DAILY VITE1 EAC1 PO; +HARD NAILS2500 MCG PO; +HYDROCHLOROTHIA25 MG PO; +K-TAB ER20 MEQ PO; +LISINOPRIL10 MG PO; +MAGNESIUM400 M1 PO; +OMEPRAZOLE20 MG PO; +VITAMIN B-12500 MCG PO
--- NOTE | 2022-05-20 08:31 | NUR ---
PT HERE FOR HER FIRST SCOPE. SHE IS ALERT, ORIENTED AND FEELS SHE IS DOING SOMETHING GOOD FOR HER HEALTH. GAVE ENCOURAGEMENT, PT REQUESTED PRAYER,
--- NOTE | 2022-05-20 09:00 | NUR ---
05/20/22 0900 Yolanda Stewart 0857 PATIENT ARRIVES TO PACU UNRESPONSIVE TO VERBALSTIMULI. RESP EVEN AND UNLABORED, MASK AT 10 LITERS, DECREASED TO 6 LITERS, SATS 100%.
--- NOTE | 2022-05-21 07:46 | OR ---
[facility] [place] [facility] [address], [place] [address] Signed DATE OF OPERATION: 05/20/2022 SURGEON: Sudhir Heart MD PREOPERATIVE DIAGNOSIS: Screening. POSTOPERATIVE DIAGNOSES: 1. Minimal sigmoid diverticulosis. 2. Minimal internal hemorrhoids. PROCEDURE: Colonoscopy without biopsy. ESTIMATED BLOOD LOSS: None. INDICATIONS: Gemma is a 51-year-old obese prediabetic female, asked to see me for her initial screening colonoscopy. There is no family history of colon cancer or polyps. She has no lower GI complaints. In the office, I had given her a pamphlet on colonoscopy. We had discussed the nature of the test. There is risk including, but not limited to gas bloating, crampy abdominal pain, bleeding, perforation requiring surgery, and missed diagnosis. We also discussed the need for monitored anesthesia care given her obesity along with her daily alcohol use and other issues listed in her history and physical. She had expressed understanding and wished to proceed. PROCEDURE NOTE: Gemma was taken into our endoscopy suite and placed in the left lateral decubitus position. She was given monitored anesthesia care with propofol per our nurse mesh worker. A digital rectal exam was performed and this was unremarkable. There were no external hemorrhoids. She has good sphincter tone. There were no masses. The adult colonoscope was then introduced and advanced under direct visualization of the camera up into the cecum without difficulty. Her prep was quite good. We could easily see the appendiceal orifice and the ileocecal valve. The scope was then slowly withdrawn. We can see she has diverticula in the sigmoid colon. They are moderate in size, few in number, and scattered about. The rectum was unremarkable. Once in the rectum, the scope was retroflexed and she does have minimal internal hemorrhoid columns. After this, the gas was suctioned out and the colonoscope removed. Gemma tolerated the procedure quite well. Electronically Signed By: SUDHIR HEART MD 05/21/22 0746 PATIENT NAME: GEMMA CANO OPERATIVE REPORT DATE OF : 72 REPORT #: [id number] PHYSICIAN: SUDHIR HEART MD PCP: [facility] REPORT IS CONFIDENTIAL AND NOT TO BE RELEASED WITHOUT AUTHORIZATION [address] [address] Signed RECOMMENDATIONS: Gemma can follow up in 10 years for repeat screening colonoscopy. Sudhir Heart MD ALB/MODL /[id number] cc: Sudhir Heart MD [facility] Copies: SUDHIR HEART MD ~ Electronically Signed By: SUDHIR HEART MD 05/21/22 0746 PATIENT NAME: GEMMA CANO OPERATIVE REPORT DATE OF : 72 REPORT #: [id number] PHYSICIAN: SUDHIR HEART MD PCP: [facility] REPORT IS CONFIDENTIAL AND NOT TO BE RELEASED WITHOUT AUTHORIZATION
== END 2022-05-20 09:30 | disposition home or self-care (01) ==
LOC: DS 06:40 → OPS 06:40 → DS 07:30 → OPS 08:10
PROVIDERS: ATTEND Colon & Rectal Surgery
PROC: 0DJD8ZZ Inspection of Lower Intestinal Tract, Via Natural or Artificial Opening Endoscopic (ICD-10-PCS; principal; 2022-05-20 08:10)
DX: Z12.11 Encounter for screening for malignant neoplasm of colon (principal); K57.30 Diverticulosis of large intestine without perforation or abscess without bleeding; K64.8 Other hemorrhoids; E03.9 Hypothyroidism, unspecified; E78.2 Mixed hyperlipidemia; I10 Essential (primary) hypertension; E11.9 Type 2 diabetes mellitus without complications; E66.9 Obesity, unspecified; F10.10 Alcohol abuse, uncomplicated; M19.90 Unspecified osteoarthritis, unspecified site
CPT/HCPCS: J2704; J7121

== ENCOUNTER 2022-08-01 23:27 | Emergency (ER) | payer OTHER ==
[~2022-08-01] VITALS: Ht 170.2 cm; Wt 112.5 kg
[~2022-08-01 23:27] MED LIST changes: +BIOTIN1 MG PO
[2022-08-01 23:52] VITALS: BP 115/68
== END 2022-08-01 23:53 | disposition home or self-care (01) ==
LOC: ED 23:27
DX: S80.862A Insect bite (nonvenomous), left lower leg, initial encounter (principal); W57.XXXA Bitten or stung by nonvenomous insect and other nonvenomous arthropods, initial encounter; R73.03 Prediabetes; Z87.891 Personal history of nicotine dependence; Z79.899 Other long term (current) drug therapy